=== PATIENT | female | born 1965 | race Caucasian/White ===

== ENCOUNTER → 2018-02-12 12:39 | Outpatient (CLI) | payer MEDICARE, MEDICAID, SELFPAY ==
--- NOTE | 2018-02-12 | DI.MRI.S_ITS ---
PROCEDURE: MR LUMBAR SPINE WO CON INDICATIONS: LOW BACK PAIN TECHNIQUE: Noncontrast sagittal T1 spin echo and T2 fast echo, sagittal STIR, axial T1 and T2 fast spin echo through the lumbar spine. In cases with scoliosis, additional coronal T2 fast spin echo may be performed. COMPARISON: [facility] Outside [facility], MR, MR LUMBAR SPINE WO CON, 08/14/2016, 12:56. [facility] [place], CR, XR LUMBAR SPINE WITH OBLIQUES, 09/03/2017, 11:37. FINDINGS: Image quality: Excellent. Alignment and Curvature: 5 lumbar type vertebral bodies are present by plain film.There is normal bony alignment. Bone Marrow: Marrow is of normal overall signal. No acute vertebral body compression fractures. Spinal Cord: Conus medullaris terminates at the mid L2 level. Visualized cord demonstrates normal signal and size. Paraspinous Soft Tissues: No paravertebral masses. L1-L2: Mild facet hypertrophy bilaterally. No significant canal, nor foraminal stenosis. L2-L3: Mild facet hypertrophy bilaterally. No significant canal, nor foraminal stenosis. No change. L3-L4: Minimal disc desiccation and diffuse disc bulge. Bilateral facet hypertrophy. Minimal canal stenosis. No foraminal stenosis. No change. L4-L5: Disc desiccation and diffuse disc bulge with new superimposed right posterior lateral protrusion and annular tear. Bilateral facet and ligament flavum hypertrophy. Mild canal stenosis. Increased, moderate to severe right foraminal stenosis, with minimal flattening deformity of the right L4 nerve root. No change in moderate left foraminal stenosis. L5-S1: Disc desiccation and diffuse disc bulge. Bilateral facet hypertrophy. Mild canal stenosis. Mild foraminal stenosis bilaterally. No change. IMPRESSION: 1. New right posterolateral L4-L5 disc protrusion, causing increased moderate to severe right-sided foraminal stenosis with new minimal right L4 nerve root flattening. Recommend correlation with clinical symptoms to ascertain relevance of this finding. 2. Otherwise no change in multilevel canal and foraminal stenoses as described above secondary to disc and facet disease. Dictated by: Hugo Olmos M.D. on 02/12/2018 at 14:31 Approved by: Hugo Olmos M.D. on 02/12/2018 at 14:41
== END ==
PROVIDERS: Visit Provider Physical Medicine & Rehabilitation
DX: M54.5 Low back pain (principal); M51.26 Other intervertebral disc displacement, lumbar region
CPT/HCPCS: 72148

== ENCOUNTER 2018-03-04 14:46 | Outpatient (CLI) | payer MEDICARE, MEDICAID, SELFPAY ==
[2018-03-04] VITALS (10 sets, daily range): BP systolic 97–143; BP diastolic 57–85; PULSE 53–62; RESP 16–18; TEMP 36.4; O2SAT 96–100
--- NOTE | 2018-03-04 14:49 | DI.RAD.S_ITS ---
PROCEDURE: PAIN L/SI FACET INJ/BLK 1STL INDICATIONS: Lumbosacral spondylosis with facet arthropathy FINDINGS: Fluoroscopic spot filming was performed to verify placement of spinal needles at the left L4, L. 5, and S1 level(s), as labeled on the films. Appropriate location(s) of the needle tip(s) was confirmed by injection of iodinated contrast. IMPRESSION: Successful left L4, L5, and left S1 needle tip localization for medial rectus block injection. Dictated by: Matt Garrison M.D. on 03/05/2018 at 10:36 Approved by: Matt Garrison M.D. on 03/05/2018 at 10:39
[2018-03-04] MEDS: MIDAZOLAM 5 MG/5 ML VIAL IV (15:53)
--- NOTE | 2018-03-04 15:53 | PM.PROC.1 ---
Procedures Date/Time Date of procedure: 03/04/18 Time of procedure: 15:53 General Procedure description: POST OP DIAGNOSIS 1. FACET ARTHROPATHY PROCEDURES 1. Left L4, L5 and S1 MB BLOCKS PHYSICIAN: DO JOO Galeano is referred by Dr. Gaspar for treatment of Left Axial LBP. DESCRIPTION OF PROCEDURE Fluoroscopically guided, contrast-controlled left L4, L5 and S1 medial branch blocks with 0.5cc of 0.5% Marcaine. Following denial of allergy and review of potential side effects and complications, including, but not necessarily limited to, infection, allergic reaction, local tissue breakdown, nerve injury, paralysis, stroke and possible , the patient indicated that the patient understood and agreed to proceed. An informed consent document was signed by the patient, witnessed by a nurse, and placed in the patient's chart. Per the patient request, IV conscious sedation was administered via 2mg of Versed and 50mcg of Fentanyl to patient comfort. The patient's vital signs were monitored throughout the procedure by both the nurse and the physician without significant fluctuation. The patient remained conversant throughout the procedure. In the prone position, following sterile prep and drape of the lumbar region, the left L4, L5 and S1 anatomical location of the medial branch of the dorsal ramus was identified fluoroscopically. Subsequently an anesthetic skin wheal using 1% lidocaine solution was initiated at each of the anatomical spots. Subsequently then a 22-gauge 3.5-inch spinal needle was atraumatically introduced and advanced under fluoroscopic guidance at each of the corresponding sites at the left L4, L5 and S1 MB. After negative aspiration, 0.2 cc of Isovue 200 was injected, confirming placement without vascular or intrathecal uptake. Subsequently then 0.5 cc of 0.5% Marcaine solution was injected at each of the corresponding sites at the left L4, L5 and S1 medial branch locations. The patient tolerated the procedure well without signs or symptoms of complications. Post-procedure, the patient was monitored initiating provocative activities to measure the amount of relief from block of the facetogenic pain. The patient reported a VAS of 7 prior to the procedure and a post-procedure VAS of 1. It has been a pleasure to assist in the diagnostic and therapeutic care of your patient. Total Fluoroscopy Time: 24.8 seconds Total Conscious Sedation Time: 24min POST OP INSTRUCTIONS The patient was provided with a Pain Log to complete over the next several hours and subsequent days prior to the patient's follow up with the ordering physician. If the patient has hedis abstractor relief to the solution applied, then they may be a candidate for medial branch rhizotomy. The patient is aware, was provided, once again, with a Pain Log and will follow up with the referring physician for review and clinical correlation Levi Haynes DO Complications: none
--- NOTE | 2018-03-04 15:57 | P.PCN_ITS ---
Procedures Date/Time Date of procedure: 03/04/18 Time of procedure: 15:53 General Procedure description: POST OP DIAGNOSIS 1. FACET ARTHROPATHY PROCEDURES 1. Left L4, L5 and S1 MB BLOCKS PHYSICIAN: DO JOO Galeano is referred by Dr. Gaspar for treatment of Left Axial LBP. DESCRIPTION OF PROCEDURE Fluoroscopically guided, contrast-controlled left L4, L5 and S1 medial branch blocks with 0.5cc of 0.5% Marcaine. Following denial of allergy and review of potential side effects and complications, including, but not necessarily limited to, infection, allergic reaction, local tissue breakdown, nerve injury, paralysis, stroke and possible , the patient indicated that the patient understood and agreed to proceed. An informed consent document was signed by the patient, witnessed by a nurse, and placed in the patient's chart. Per the patient request, IV conscious sedation was administered via 2mg of Versed and 50mcg of Fentanyl to patient comfort. The patient's vital signs were monitored throughout the procedure by both the nurse and the physician without significant fluctuation. The patient remained conversant throughout the procedure. In the prone position, following sterile prep and drape of the lumbar region, the left L4, L5 and S1 anatomical location of the medial branch of the dorsal ramus was identified fluoroscopically. Subsequently an anesthetic skin wheal using 1% lidocaine solution was initiated at each of the anatomical spots. Subsequently then a 22-gauge 3.5-inch spinal needle was atraumatically introduced and advanced under fluoroscopic guidance at each of the corresponding sites at the left L4, L5 and S1 MB. After negative aspiration, 0.2 cc of Isovue 200 was injected, confirming placement without vascular or intrathecal uptake. Subsequently then 0.5 cc of 0.5% Marcaine solution was injected at each of the corresponding sites at the left L4, L5 and S1 medial branch locations. The patient tolerated the procedure well without signs or symptoms of complications. Post-procedure, the patient was monitored initiating provocative activities to measure the amount of relief from block of the facetogenic pain. The patient reported a VAS of 7 prior to the procedure and a post-procedure VAS of 1. It has been a pleasure to assist in the diagnostic and therapeutic care of your patient. Total Fluoroscopy Time: 24.8 seconds Total Conscious Sedation Time: 24min POST OP INSTRUCTIONS The patient was provided with a Pain Log to complete over the next several hours and subsequent days prior to the patient's follow up with the ordering physician. If the patient has balancing machine set up worker relief to the solution applied, then they may be a candidate for medial branch rhizotomy. The patient is aware , was provided, once again, with a Pain Log and will follow up with the referring physician for review and clinical correlation Levi Haynes DO Complications: none
[2018-03-04] MEDS: IOPAMIDOL 15 ML VIAL 3 ML INJ (16:03)
[2018-03-04] MEDS: BETAMETHASONE 30 MG/5 ML MDV 12 MG INJ (16:03)
[2018-03-04] MEDS: BUPIVACAINE 0.5% (PF) 30 ML VIAL INJ (16:03)
[2018-03-04] MEDS: LIDOCAINE 1% 20 ML INJ 10 ML INJ (16:03)
== END 2018-03-04 16:58 ==
LOC: RAD 14:48
PROVIDERS: PCP Family Medicine; Visit Provider Physical Medicine & Rehabilitation
DX: M47.817 Spondylosis without myelopathy or radiculopathy, lumbosacral region (principal); M46.96 Unspecified inflammatory spondylopathy, lumbar region
CPT/HCPCS: 64493; 64494; 64495; 99152; 99153; J0702; J2250; J3010

== ENCOUNTER → 2018-07-03 10:50 | Outpatient (CLI) | payer MEDICARE, MEDICAID, SELFPAY ==
--- NOTE | 2018-07-05 11:10 | PM.PFT.1 ---
Pulmonary Function Test Referral & Results Date Patient Seen: 07/03/18 Requesting provider: Sarmad Parker Indication: Shortness of breath Results: The spirometry demonstrates an FVC of 3.41 L which is 99% of predicted. The FEV1 was measured at 2.5 L which is 106% of predicted. The FEV1/FVC ratio was 83 which is 105% of predicted. Following the administration of bronchodilator there was a 36% improvement in FEF 25-75%. Lung volumes show an SVC of 3.20 L which is 101% of predicted. The diffusing capacity was measured at 23.47 which is 96% of predicted. The maximum voluntary ventilation was normal Interpretation: This study demonstrates normal pulmonary function. Patient also had PFTs performed in April 2014 which were also normal.
== END ==
PROVIDERS: PCP Family Medicine; Visit Provider Internal Medicine Cardiovascular Disease
DX: R06.02 Shortness of breath (principal)
CPT/HCPCS: 94060; 94726; 94729

== ENCOUNTER 2018-07-29 11:15 | Outpatient (CLI) | payer MEDICARE, MEDICAID, SELFPAY ==
[2018-07-29] VITALS (11 sets, daily range): BP systolic 95–121; BP diastolic 52–108; PULSE 53–64; RESP 16–18; TEMP 36.4; O2SAT 95–99
--- NOTE | 2018-07-29 11:18 | DI.RAD.S_ITS ---
PROCEDURE: PAIN L/S MED/LAT N RFA INDICATIONS: SPONDYLOSIS FINDINGS: Fluoroscopic spot filming was performed to verify placement of spinal needles at the L4, L5, S1 level(s), as labeled on the films. Appropriate location(s) of the needle tip(s) was confirmed by injection of iodinated contrast. Dictated by: Carlos Enrique Agustin M.D. on 07/30/2018 at 9:08 Approved by: Carlos Enrique Agustin M.D. on 07/30/2018 at 9:09
[2018-07-29] MEDS: MIDAZOLAM 5 MG/5 ML VIAL IV (12:23)
[2018-07-29] MEDS: fentaNYL 100 MCG/2 ML INJ IV (12:23)
[2018-07-29] MEDS: LIDOCAINE 1% 20 ML INJ 10 ML INJ (12:38)
[2018-07-29] MEDS: BUPIVACAINE 0.25% (PF) VIAL 2 ML INJ (12:38)
--- NOTE | 2018-07-29 12:49 | PC.NURSE ---
ASSISTING PT OFF TABLE AND TRANSPORTING TO POST PROC ROOM IN IN STABLE CONDITION
--- NOTE | 2018-07-29 12:57 | P.PCN_ITS ---
Procedures Date/Time Date of procedure: 07/29/18 Time of procedure: 12:56 General Procedure description: PREOP DIAGNOSIS 1. RECALCITRANT FACET ARTHROPATHY, POST OP DIAGNOSIS 1. RECALCITRANT FACET ARTHROPATHY, PROCEDURES 1. LEFTT L4 AND L5 MEDIAL BRANCH RADIOFREQUENCY NEUROTOMY AND LEFT S1 DORSAL RAMUS RADIOFREQUENCY NEUROTOMY, PHYSICIAN: Levi Haynes DO INDICATIONS: Aidna is referred by for treatment of facet arthropathy. DESCRIPTION OF PROCEDURE Left L4 and L5 medial branch radiofrequency neurotomy and left S1 dorsal ramus branch radiofrequency neurotomy under fluoroscopy with conscious sedation. The patient is well known to this clinic having undergone previous facet injections with good but temporary relief. The patient has experienced appropriate, concordant relief with previous facet and median branch blocks but the patient's pain has been recalcitrant to further conservative measures. Therefore, based upon the patient's relief and persistent symptoms, the patient is considered an appropriate candidate for facet rhizotomy. All of the patient' s questions regarding the risks versus benefits of the procedure, including, but not limited to, bleeding, infection, temporary as well as lasting nerve injury, paralysis, stroke, and , as well treatment alternatives were answered to satisfaction. After obtaining informed consent, denial of pertinent drug allergies, as well as being made aware of the potential risks of bleeding, infection, spinal cord trauma, paralysis, temporary and permanent nerve damage, seizure, stroke, and possible , the patient was brought to the fluoroscopy suite and positioned prone on the fluoroscopy table. The lumbar region was prepped with Betadine and covered with a fenestrated drape in the usual sterile fashion. Appropriate monitors applied including pulse oximeter, pulse, and blood pressure for regular monitoring throughout the procedure. IV sedation was accomplished with a combination of 4mg of Versed and 100mcg of Fentanyl titrated to patient comfort during the course of the procedure while the patient remained responsive to all verbal commands. After local infiltration using 1% lidocaine, under fluoroscopic guidance, a 10- cm RF insulated needle with a 10-mm active tip was positioned parallel to the junction of the left sacral ala and the superior articulating process where the S1 dorsal ramus resides. Needle placement was confirmed with sensory stimulation at 50 Hz, with motor stimulation of .5v on the left which produced local stimulation without radicular component. The stimulation was then increased to 1.5v with, once again, only local multifidus stimulation without radicular component. This was then followed by two discreet lesions performed at 80 degrees Celsius for 90 seconds each. The needle was then removed and the identical procedure was performed along the length of the left L5 medial branch with motor stimulation at .7v on the leftt. The identical procedure was once again performed along the length of the left L4 medial branch with motor stimulation of .5v on the left. The patient tolerated the procedure well without signs or symptoms of complications prior to transfer to the recovery area continued monitoring without incident. The patient was then transferred to the recovery area where they were observed for an appropriate period of time after the injection. The patient was then transferred to the recovery area where they were observed for an appropriate period of time after the injection. The patient reported a VAS score of 9 prior to the procedure and a post- procedure VAS of 0. Total Fluoroscopy Time: 22.7 seconds Total Conscious Sedation Time: 34min POST OP INSTRUCTIONS The patient was provided a Pain Log to continue to record the patient's response to the target-specific procedure prior to the patient's follow-up visit with the referring physician. Additionally, specific post-injection care instructions and a contact number to our office were provided if concerns arise regarding possible complications associated with the procedure are suspected. Levi Haynes, Complications: none
--- NOTE | 2018-07-30 11:42 | PC.NURSE ---
Follow up call made and pt reports having increased pain but she was ready for it. She says the tramadol doesn't help her much but the valium at night at least helps her sleep through the pain. She denies any numbness or weirdness.
== END 2018-07-29 13:30 ==
LOC: RAD 11:17
PROVIDERS: PCP Family Medicine; Visit Provider Physical Medicine & Rehabilitation
DX: M47.816 Spondylosis without myelopathy or radiculopathy, lumbar region (principal); M51.26 Other intervertebral disc displacement, lumbar region; M51.27 Other intervertebral disc displacement, lumbosacral region; M48.061 Spinal stenosis, lumbar region without neurogenic claudication; M48.07 Spinal stenosis, lumbosacral region
CPT/HCPCS: 64635; 99152; J2250; J3010

== ENCOUNTER → 2022-05-31 15:41 | Outpatient (CLI) | payer MEDICARE, MEDICAID, SELFPAY ==
--- NOTE | 2022-05-31 15:43 | DI.ECHO.S_ITS ---
[place] [facility]---------+ [facility] +---------+ : : [address] : : : : [id number] : : : : Phone: [phone]+ Echocardiogram Report + + :Name: MIC LIU Study Date: 05/31/2022 Height: 64 in : :[facility] ReadingLocation: Weight: 140 lb : : Gender: Female BSA: 1.7 m2 : :: 1965 Age: 57 yrs BP: 123/66 mmHg: :Reason For Study: Mitral Valve- Regurgitation : :Ordering Physician: TORO, : :JONATHAN Performed By: Osito Ovalles : :Referring: JONATHAN ENGEL : + + Interpretation Summary The left ventricle is normal in size and wall thickness. The ejection fraction is estimated to be 55-60%. Previous LVEF 50 to 55%. The right ventricle is normal in size and function. Mild MR and TR without any significant change from the previous study. The IVC is of normal diameter and collapses greater than 50% with a sniff. This suggests a low right atrial pressure of 3 mm Hg. Procedure: A two-dimensional transthoracic echocardiogram with color flow and Doppler was performed. The study quality was technically adequate. Comparison is made with the echocardiogram of 05/20/2014. The patient was in normal sinus rhythm during the exam. Left Ventricle: The left ventricle is normal in size and wall thickness. There is no thrombus. Left ventricular systolic function is normal. The ejection fraction is estimated to be 55-60%. There are no focal wall motion abnormalities. MV E/A: 1.1 Med Peak E' Miguel: 7.2 cm/sec E/E' med: 12.6. Right Ventricle: The right ventricle is normal in size and function. Atria: Both atria are normal in size. There has been no significant change since the previous study. The interatrial septum grossly appears intact with no obvious evidence for an atrial septal defect. Mitral Valve: The mitral valve is normal in structure and function. There is mild mitral regurgitation. Compared to the prior echo study, there has been no change in the severity of mitral regurgitation. Aortic Valve: The aortic valve is normal in structure and function. The aortic valve is trileaflet. The aortic valve opens well. There is no aortic valve stenosis. No aortic regurgitation is present. Tricuspid Valve: The tricuspid valve is normal in structure and function. There is mild tricuspid regurgitation. The right ventricular systolic pressure is estimated to be at least 24 mmHg based on an estimated right atrial pressure of 3 mm Hg. Compared to the prior echo exam, there has been no change in TR severity. Pulmonic Valve: The pulmonic valve is normal in structure and function. There is no pulmonic valvular regurgitation. Great Vessels: The aortic root is normal size. The dimensions of the ascending aorta are normal. The IVC is of normal diameter and collapses greater than 50% with a sniff. This suggests a low right atrial pressure of 3 mm Hg. Pericardium/ Pleura There is no pericardial effusion. There is a large left- sided pleural effusion. MMode/2D Measurements & Calculations LVIDd: 5.2 cm LVOT diam: 2.0 cm LVIDs: 3.5 cm Ao root diam: 3.0 cm FS: 32.7 % asc Aorta Diam: 3.0 cm IVSd: 0.80 cm LVPWd: 0.80 cm LV jones. diameter/BSA (cm/m^2): 3.1 LV sys. diameter/BSA (cm/m^2): 2.1 LA dimension: 3.4 cm RA long axis: 4.3 cm LA A2 area: 17.1 cm2 LA A4 area: 15.9 cm2 LA length (vol): 5.3 cm LA vol: 43.5 ml LA vol index: 25.9 ml/m2 TAPSE_phl: 2.6 cm Doppler Measurements & Calculations Ao V2 max: 136.0 cm/sec LVOT Max Miguel: 131.0 cm/sec Ao V2 mean: 96.5 cm/sec LV V1 max P.9 mmHg Ao max P.0 mmHg LV V1 VTI: 28.6 cm Ao mean P.0 mmHg WALT(I,D): 2.8 cm2 Ao V2 VTI: 31.7 cm WALT(V,D): 3.0 cm2 sev ratio: 0.90 WALT indexed to BSA (cm^2/m^2): 1.7 MV E max miguel: 90.0 cm/sec TR max miguel: 231.0 cm/sec MV A max miguel: 83.6 cm/sec TR max P.3 mmHg MV E/A: 1.1 Med Peak E' Miguel: 7.2 cm/sec E/E' med: 12.6 Lat Peak E' Miguel: 11.0 cm/sec E/E' lat: 8.2 E/e' average: 10.4 MV dec time: 0.23 sec SV(LVOT): 89.8 ml AV VR_phl: 0.96 WALT(VTI)/BSA_phl: 1.7 MV P1/2t-pr_phl: 68.0 msec Reading Physician:10:06 AM
== END ==
PROVIDERS: PCP Internal Medicine; Referring Provider Nurse Practitioner Acute Care; Visit Provider Nurse Practitioner Acute Care
DX: R06.02 Shortness of breath (principal); I08.1 Rheumatic disorders of both mitral and tricuspid valves
CPT/HCPCS: 93306